=== PATIENT | female | born 1975 | race Caucasian/White ===

== ENCOUNTER → 2016-07-24 | Outpatient (CLI) | payer OTHER ==
[~2016-07-24] VITALS: Ht 165.1 cm; Wt 63.2 kg
[~2016-07-24] MED LIST: ENJUVIA0.625 MG PO; LEVAQUIN 5500 MG/TA1 PO
[2016-07-24 16:05] VITALS: BP 123/73
== END ==
LOC: AMSURD 16:00
DX: R00.2 Palpitations (principal)

== ENCOUNTER → 2017-12-15 | Outpatient (CLI) | payer BC ==
[2016-07-24 16:05] VITALS: BP 123/73
== END ==
LOC: LAB 18:18
PROVIDERS: Nurse Practitioner Family
DX: E05.00 Thyrotoxicosis with diffuse goiter without thyrotoxic crisis or storm (principal)